=== PATIENT | female | born 1965 | race Caucasian/White ===

== ENCOUNTER → 2019-07-03 | Outpatient (CLI) | payer OTHER ==
[~2019-07-03] MED LIST: ACETAMINOPHEN; ACYC400 PO; ALBU.083IS IH; ALBU90OI; ALBU90OI6 INH; ALBU90OI61 INH; AMIT10; AMIT25; AMIT25 PO; AMIT50; AMIT50 PO; ATEN25; AZIT250 PO; AZIT500 PO; BENZ100A PO; CALC.25; CALC.25 PO; CHOL10002 PO; CITA10S; CITA20; CITA20 PO; CLON1; CLON1 PO; CLON2; CODGUAEL PO; CYCL10 PO; DIAZ5; DIAZ5 PO; DOXY100 PO; ERGO50000 PO; FLUSAL2505 IH; GABA100; GABA300; HYDACE5 PO; HYDMOR2 PO; HYDPAM25; HYDPAM25 PO; HYDR1TAB94; IBUP800 PO; KETO10 PO; LAVAZA PO; LEVFLO500 PO; LEVOXYL; LEVSOD100; LEVSOD125; LEVSOD125 PO; LEVSOD137 PO; LEVSOD175; LIOT25; LORA1; MECL25 PO; METO50 PO; MIRT15; MIRT15 PO; MIRT30; MIRT30 PO; NAPR500; NAPR500 PO; OLAN2.5; OLAN2.5 PO; OLAN5 PO; ONDA4 PO; OXYACE10 PO; OXYACE5T; OXYACE5T PO; OXYACE7.5T PO; OXYCODONE; OXYGEN USE; PERCOCET 10/325; PRAV20 PO; PRAV40 PO; PRED10 PO; PRED20 PO; PROM25 PO; Percocet PO; Pravachol PO; RANI150; RANI150 PO; RXCODGUASY PO; RXCYCL10 PO; RXHYDMOR2 PO; RXOXYACE PO; RXPROM25 PO; SILSUL1TC TOP; TIOT18 IH; [UNRECOGNIZED DRUG - OTHER]; [UNRECOGNIZED DRUG - REMARK]; [UNRECOGNIZED DRUG - REMARK]
== END ==
LOC: LAB SHORT 18:06 → LAB EV 18:06
DX: M54.16 Radiculopathy, lumbar region (principal); G89.4 Chronic pain syndrome
CPT/HCPCS: G0480

== ENCOUNTER 2019-09-12 12:17 | Inpatient (IN) | payer OTHER ==
[~2019-09-12] VITALS: Ht 157.5 cm; Wt 67.4 kg
[2019-09-12 13:04] LABS: BASOPHILS ABSOLUTE AUTO 0.03 K/mm3 (0.00-0.23); BASOPHILS PERCENT AUTO 0 % (0-2); EOSINOPHILS ABSOLUTE AUTO 0.21 K/mm3 (0.00-0.68); EOSINOPHILS PERCENT AUTO 2 % (0-6); Hemoglobin 12.5 g/dL (11.5-16.0); IMMATURE GRAN ABSOLUTE AUTO 0.03 K/mm3 (0.00-0.10); IMMATURE GRAN PERCENT AUTO 0 % (0-1); LYMPHOCYTES ABSOLUTE AUTO 1.81 K/mm3 (0.84-5.20); LYMPHOCYTES PERCENT AUTO 16 % (21-46); MONOCYTES ABSOLUTE AUTO 0.53 K/mm3 (0.16-1.47); MONOCYTES PERCENT AUTO 5 % (4-13); Mean Corpuscular HGB 28.2 pg (26.0-34.0); Mean Corpuscular HGB Conc 32.1 g/dL (31.5-36.5); Mean Corpuscular Volume 88 fL (80-100); Mean Platelet Volume 9.9 fL (9.1-12.4); NEUTROPHILS ABSOLUTE AUTO 8.84 K/mm3 (1.96-9.15); NEUTROPHILS PERCENT AUTO 77 % (41-73); Platelet Count 251 K/mm3 (150-400); RDW Coefficient Variation 12.4 % (11.7-14.2); RDW Standard Deviation 39.8 fL (35.1-46.3); Red Blood Cell Count 4.44 M/mm3 (3.80-5.20); White Blood Cell Count 11.45 K/mm3 (4.00-11.30)
[2019-09-12 13:23] LABS: Troponin I <0.015 ng/mL (0.000-0.040)
[2019-09-12 13:30] LABS: Alanine Aminotransfer (ALT/SGP 19 U/L (12-78); Albumin, Blood 3.6 g/dL (3.4-5.0); Albumin/Globulin Ratio 0.9 (0.8-1.8); Alk Phos 150 U/L (50-136); Anion Gap 9 mmol/L (6-16); Aspartate Aminotrans (AST/SGOT 15 U/L (12-37); Bilirubin, Total 0.4 mg/dL (0.1-1.0); Blood Urea Nitrogen 9 mg/dL (8-24); CO2, Blood 27 mmol/L (21-32); Calcium, Blood 5.5 mg/dL (8.5-10.1); Chloride, Blood 104 mmol/L (98-108); Globulin, Blood 3.8 g/dL (2.2-4.0); Glomerular Filtration Rate >60 (60-); Glucose, Blood 87 mg/dL (70-99); Potassium, Blood 3.2 mmol/L (3.5-5.5); Sodium, Blood 140 mmol/L (136-145); Total Protein, Blood 7.4 g/dL (6.4-8.2)
[2019-09-12] MEDS ORDERED: POTA10T PO (16:08)
[2019-09-12] MEDS ORDERED: ATOR40TA PO (16:09)
[2019-09-12] MEDS ORDERED: Citalopram HBr40 MG PO (16:09)
[2019-09-12] MEDS ORDERED: ALPR.5 PO (16:09)
[2019-09-12] MEDS ORDERED: SYMBICORT 160-4.6 GM INH (16:09)
[2019-09-12] MEDS ORDERED: PROAIR RESPICL90 MCG INH (16:10)
[2019-09-12] MEDS ORDERED: LEVSOD100 PO (16:10)
[2019-09-12] MEDS ORDERED: GABA300 PO (16:10)
[2019-09-12] MEDS ORDERED: AMIT50 PO (16:10)
[2019-09-12] MEDS ORDERED: OLAN5 PO (16:10)
[2019-09-12] MEDS ORDERED: MIRT15 PO (16:11)
--- NOTE | 2019-09-12 22:30 | NUR ---
PCU ADMIT PT BROUGHT TO PCU-06 FROM ER BY RODGER @ APPROX 211. PT A&O X4, ABLE TO STAND AND AMBULATE TO PCU BED W/ SBA. PT VSS. MONITOR SHOWS NSR, HR 70's. SPO2 > 92% ON 2L NC. PT REPORTS RA @ BASELINE. PT DAUGHTER WILL BE COMING IN TO SPEND NIGHT W/ PT PER MD & NURSING CUFF FOLDER APPROVAL. WILL CONTINUE TO MONITOR AND PROVIDE CARE UNTIL REPORT OFF TO DAY SHIFT RN.
[2019-09-13 03:28] LABS: BASOPHILS ABSOLUTE AUTO 0.03 K/mm3 (0.00-0.23); BASOPHILS PERCENT AUTO 0 % (0-2); EOSINOPHILS ABSOLUTE AUTO 0.43 K/mm3 (0.00-0.68); EOSINOPHILS PERCENT AUTO 5 % (0-6); Hematocrit 35.8 % (33.0-51.0); Hemoglobin 11.1 g/dL (11.5-16.0); IMMATURE GRAN ABSOLUTE AUTO 0.02 K/mm3 (0.00-0.10); IMMATURE GRAN PERCENT AUTO 0 % (0-1); LYMPHOCYTES PERCENT AUTO 31 % (21-46); MONOCYTES ABSOLUTE AUTO 0.46 K/mm3 (0.16-1.47); MONOCYTES PERCENT AUTO 5 % (4-13); Mean Corpuscular HGB 28.2 pg (26.0-34.0); Mean Corpuscular Volume 91 fL (80-100); Mean Platelet Volume 10.3 fL (9.1-12.4); NEUTROPHILS ABSOLUTE AUTO 5.16 K/mm3 (1.96-9.15); NEUTROPHILS PERCENT AUTO 59 % (41-73); Platelet Count 190 K/mm3 (150-400); RDW Coefficient Variation 12.4 % (11.7-14.2); RDW Standard Deviation 41.3 fL (35.1-46.3); Red Blood Cell Count 3.93 M/mm3 (3.80-5.20)
[2019-09-13 04:22] LABS: Alanine Aminotransfer (ALT/SGP 16 U/L (12-78); Albumin/Globulin Ratio 0.9 (0.8-1.8); Alk Phos 130 U/L (50-136); Anion Gap 7 mmol/L (6-16); Aspartate Aminotrans (AST/SGOT 16 U/L (12-37); Bilirubin, Total 0.3 mg/dL (0.1-1.0); Blood Urea Nitrogen 11 mg/dL (8-24); Bun/Creatinine Ratio 10.9 (12.0-20.0); CO2, Blood 28 mmol/L (21-32); Calcium, Blood 7.6 mg/dL (8.5-10.1); Chloride, Blood 105 mmol/L (98-108); Creatinine, Blood 1.01 mg/dL (0.40-1.00); Globulin, Blood 3.4 g/dL (2.2-4.0); Glomerular Filtration Rate >60 (60-); Glucose, Blood 104 mg/dL (70-99); Potassium, Blood 3.1 mmol/L (3.5-5.5); Sodium, Blood 140 mmol/L (136-145); Total Protein, Blood 6.4 g/dL (6.4-8.2)
--- NOTE | 2019-09-13 05:57 | NUR ---
SHIFT SUMMARY PT A&O X4. VSS. MONITOR SHOWS NSR, HR 80's-90's. SPO2 > 92% ON 2L NC, TITRATED TO RA WHICH IS PT's REPORTED BASELINE. CA GLUCONATE GTT INFUSING PER ORDERS. PT'S DAUGHTER AT BEDSIDE T/O NIGHT. NO EVENTS OVER NIGHT. WILL CONTINUE TO MONITOR AND PROVIDE CARE UNTIL REPORT OFF TO DAY SHIFT RN.
--- NOTE | 2019-09-13 08:00 | NUR ---
pt laying in bed sleeping, daughter in room with her, she wakes easily but is very tired, her daughter states she is not a morning person and was woke throughout the night, lungs are clear in upper perez, a bit dim in bases, resp even and unlabored, no cough noted, hrr, tele in place running sr per monitor, see strip, no edema noted, ppp+1, cap refill <3sec, vs sable, afbrile, iv site is clear and patent, btx4, abd flat soft nontender, voids without diff, skin c/w/d, maew, gait noted to be steady when got her to the bathroom, call light in reach.
--- NOTE | 2019-09-13 13:30 | NUR ---
pt ambulating in the sims with her daughter, gait noted to be steady, states she feels good, call light in reach.
--- NOTE | 2019-09-13 19:08 | NUR ---
pt resting in bed, has ambulated in sims several times today, daughter with her all day, no acute changes, calcium continues to infuse at 30mls/hr, will recheck tonight, and plan is for her to go home in the am. call light in reach.
--- NOTE | 2019-09-13 19:38 | NUR ---
ASSUMED CARE / CALL TO MD CALL TO MD FLORES TO REPORT SERUM CA 9.0. W/ INSTRUCTIONS TO CHANGE CA GLUCONATE GTT RATE TO 15 MLS/HR, REDRAW SERUM CA IN 4 HRS, & SHUT CA GTT OFF IF CA > 9. PT A&O X4. VSS. MONITOR SHOWS SR, HR 80's. SPO2 > 92% ON RA. PT FMAILY MEMBER AT BEDSIDE. WILL CONTINUE TO MONITOR & PROVIDE CARE.
--- NOTE | 2019-09-13 21:40 | NUR ---
UNCOLLECTED URINE PT REMINDED OF NEEDED URINE SAMPLE ORDERED 09/11. PT NOTED TO HAVE REMOVED CLEAN COLLECTION BOWEL FROM TOILET, STATING THAT SHE CAN'T PEE W/ THE BOWEL IN THE TOILET BECAUSE "I'VE HAD THE RUNS TODAY." PT ENCOURAGED TO URINATE IN COLLECTION DEVICE UPON NEXT VOID IF POSSIBLE.
[2019-09-14 04:11] LABS: BASOPHILS ABSOLUTE AUTO 0.03 K/mm3 (0.00-0.23); BASOPHILS PERCENT AUTO 0 % (0-2); EOSINOPHILS PERCENT AUTO 4 % (0-6); Hematocrit 37.2 % (33.0-51.0); Hemoglobin 11.7 g/dL (11.5-16.0); IMMATURE GRAN ABSOLUTE AUTO 0.02 K/mm3 (0.00-0.10); IMMATURE GRAN PERCENT AUTO 0 % (0-1); LYMPHOCYTES ABSOLUTE AUTO 2.52 K/mm3 (0.84-5.20); LYMPHOCYTES PERCENT AUTO 31 % (21-46); MONOCYTES ABSOLUTE AUTO 0.47 K/mm3 (0.16-1.47); MONOCYTES PERCENT AUTO 6 % (4-13); Mean Corpuscular HGB 27.7 pg (26.0-34.0); Mean Corpuscular HGB Conc 31.5 g/dL (31.5-36.5); Mean Corpuscular Volume 88 fL (80-100); Mean Platelet Volume 10.2 fL (9.1-12.4); NEUTROPHILS ABSOLUTE AUTO 4.82 K/mm3 (1.96-9.15); NEUTROPHILS PERCENT AUTO 59 % (41-73); Platelet Count 227 K/mm3 (150-400); RDW Coefficient Variation 12.3 % (11.7-14.2); RDW Standard Deviation 39.4 fL (35.1-46.3); Red Blood Cell Count 4.22 M/mm3 (3.80-5.20); White Blood Cell Count 8.16 K/mm3 (4.00-11.30)
[2019-09-14 04:29] LABS: Anion Gap 7 mmol/L (6-16); Blood Urea Nitrogen 9 mg/dL (8-24); Bun/Creatinine Ratio 10.5 (12.0-20.0); CO2, Blood 27 mmol/L (21-32); Calcium, Blood 8.5 mg/dL (8.5-10.1); Chloride, Blood 105 mmol/L (98-108); Creatinine, Blood 0.86 mg/dL (0.40-1.00); Glomerular Filtration Rate >60 (60-); Glucose, Blood 91 mg/dL (70-99); Potassium, Blood 3.1 mmol/L (3.5-5.5); Sodium, Blood 139 mmol/L (136-145)
--- NOTE | 2019-09-14 06:00 | NUR ---
SHIFT SUMMARY PT A&O X4. VSS. MONITOR SHOWS SR, HR 80's. SPO2 > 92% ON RA. CA GLUCONATE GTT DC'd THIS SHIFT. URINE SAMPLE REMAINS UNCOLLECTED D/T PT VOIDING IN TOILET RATHER THAN COLLECTION BOWEL DESPITE STAFF REQUEST. PT FAMILY MEMBER AT BEDSIDE T/O NIGHT. NO EVENTS OVER NIGHT. WILL CONTINUE TO MONITOR & PROVIDE CARE UNTIL REPORT OFF TO DAY SHIFT RN.
--- NOTE | 2019-09-14 08:00 | NUR ---
pt laying in bed awake a/ox3, pleasant and cooperative with care, follows commands well, complains of shoulder pain, too early for pain meds, daughter in room with her, lungs are a bit course, dim in bases, resp even and unlabored, no cough noted, hrr, tele in place running sr per monitor, see strip, no edema noted, ppp+2, cap refill <3sec, vs stable, afebrile, iv site is clear and patent, btx4, abd flat soft nontender, voids without diff, skin c/w/d, maew, brendan, call light in reach.
[2019-09-14] MEDS ORDERED: TUMS500 MG PO (09:07)
[2019-09-14] MEDS ORDERED: CALC.25 PO (09:07)
[2019-09-14] MEDS ORDERED: Vitamin D2000 UNIT PO (09:08)
[2019-09-14] MEDS ORDERED: TRAM50 PO (10:03)
--- NOTE | 2019-09-14 10:35 | NUR ---
Dr. Donovan in to see pt is dischaging her to home with new medications, went over instructions with her and her daughter, called in new medications to [facility], hard copy for tramadol was given to daughter, iv removed intact, left via wheelchair with recycling sorter in attendence.
[2019-09-21 16:11] LABS: ANTI-THYROGLOBULIN ANTIBODIES 131 IU/mL (.); THYROGLOBULIN (TG-RIA) 15 ng/mL (.)
== END 2019-09-14 10:02 | disposition home or self-care (01) | DRG 640 ==
LOC: ER 12:17 → PCU 20:16
PROVIDERS: Emergency Medicine; Family Medicine; Internal Medicine Endocrinology, Diabetes & Metabolism; ADMIT Family Medicine
DX: E83.51 Hypocalcemia (principal); J96.00 Acute respiratory failure, unspecified whether with hypoxia or hypercapnia; C78.00 Secondary malignant neoplasm of unspecified lung; G62.9 Polyneuropathy, unspecified; F17.210 Nicotine dependence, cigarettes, uncomplicated; Z90.09 Acquired absence of other part of head and neck; F43.10 Post-traumatic stress disorder, unspecified; F40.00 Agoraphobia, unspecified; C73 Malignant neoplasm of thyroid gland
CPT/HCPCS: 36415; 71260; 80048; 80053; 82306; 82310; 83735; 83880; 83970; 84432; 84484; 85025; 85379; 86800; 93005; 93010; 94640; 94760; 96365; 96366; 96372-59; 96376; 99285-25; A9270; A9270-GY; J0610; J1650; J7030; Q9967

== ENCOUNTER 2022-06-20 17:52 | Emergency (ER) | payer OTHER ==
[~2022-06-20] VITALS: Ht 157.5 cm; Wt 70.8 kg
[~2022-06-20 17:52] MED LIST changes: +ALPR.5 PO; +ATOR40TA PO; +Citalopram HBr40 MG PO; +GABA300 PO; +LEVSOD100 PO; +POTA10T PO; +PROAIR RESPICL90 MCG INH; +SYMBICORT 160-4.6 GM INH; +TRAM50 PO; +TUMS500 MG PO; +Vitamin D2000 UNIT PO
[2022-06-20] MEDS ORDERED: Ativan1 MG PO (18:18)
== END 2022-06-20 20:34 | disposition home or self-care (01) ==
LOC: ER 17:52
DX: R51.9 Headache, unspecified (principal); M54.2 Cervicalgia; V49.40XA Driver injured in collision with unspecified motor vehicles in traffic accident, initial encounter; J44.9 Chronic obstructive pulmonary disease, unspecified; Z87.891 Personal history of nicotine dependence; Z88.8 Allergy status to other drugs, medicaments and biological substances; Z88.1 Allergy status to other antibiotic agents
CPT/HCPCS: A9270; J1885

== ENCOUNTER → 2023-09-28 | Outpatient (CLI) | payer OTHER ==
[~2023-09-28] MED LIST changes: +Ativan1 MG PO
[2023-10-05 12:05] LABS: HPV HIGH RISK BY TMA Not Detected; HPV SOURCE Cervical
== END | disposition home or self-care (01) ==
LOC: LAB SHORT 17:39 → LAB 17:39
PROVIDERS: Family Medicine
DX: Z12.4 Encounter for screening for malignant neoplasm of cervix (principal)
CPT/HCPCS: 87624; G0123

== ENCOUNTER 2023-11-07 23:40 | Observation (INO) | payer OTHER ==
[~2023-11-07] VITALS: Ht 165.1 cm; Wt 65.0 kg
[2023-11-08 00:12] LABS: BASOPHILS ABSOLUTE AUTO 0.02 K/mm3 (0.00-0.23); BASOPHILS PERCENT AUTO 0 % (0-2); EOSINOPHILS ABSOLUTE AUTO 0.25 K/mm3 (0.00-0.68); EOSINOPHILS PERCENT AUTO 3 % (0-6); Hematocrit 36.4 % (33.0-51.0); Hemoglobin 11.9 g/dL (11.5-16.0); IMMATURE GRAN ABSOLUTE AUTO 0.01 K/mm3 (0.00-0.10); IMMATURE GRAN PERCENT AUTO 0 % (0-1); LYMPHOCYTES ABSOLUTE AUTO 2.87 K/mm3 (0.84-5.20); LYMPHOCYTES PERCENT AUTO 35 % (21-46); MONOCYTES ABSOLUTE AUTO 0.57 K/mm3 (0.16-1.47); MONOCYTES PERCENT AUTO 7 % (4-13); Mean Corpuscular HGB 29.9 pg (26.0-34.0); Mean Corpuscular HGB Conc 32.7 g/dL (31.5-36.5); Mean Corpuscular Volume 92 fL (80-100); NEUTROPHILS PERCENT AUTO 54 % (41-73); Platelet Count 252 K/mm3 (150-400); RDW Coefficient Variation 12.2 % (11.7-14.2); Red Blood Cell Count 3.98 M/mm3 (3.80-5.20); White Blood Cell Count 8.12 K/mm3 (4.00-11.30)
[2023-11-08 00:30] LABS: Albumin, Blood 3.9 g/dL (3.4-5.0); Albumin/Globulin Ratio 1.2 (0.8-1.8); Bilirubin, Total 0.3 mg/dL (0.1-1.0); Bun/Creatinine Ratio 16.8 (12.0-20.0); Calcium, Blood 8.3 mg/dL (8.5-10.1); Creatinine, Blood 1.07 mg/dL (0.40-1.00); Globulin, Blood 3.2 g/dL (2.2-4.0); Potassium, Blood 3.7 mmol/L (3.5-5.5); Total Protein, Blood 7.1 g/dL (6.4-8.2)
[2023-11-08] MEDS ORDERED: Ketorolac Tromethamine 30mg Vial IV ONE (00:50)
[2023-11-08] MEDS ORDERED: FentaNYL Citrate 50 MCG/ML 2 ML Injection IV ONE (01:35)
[2023-11-08] MEDS ORDERED: Aspirin 81 MG Chew PO ONE (01:45)
[2023-11-08] MEDS ORDERED: FentaNYL Citrate 50 MCG/ML 2 ML Injection IV PRN (03:00)
[2023-11-08 04:16] VITALS: BP 119/58
[2023-11-08] MEDS ORDERED: OLAN5A MM (04:26)
[2023-11-08] MEDS ORDERED: Percocet 10-321 EACH PO (04:28)
[2023-11-08] MEDS ORDERED: METPHE27ER PO (04:28)
--- NOTE | 2023-11-08 06:23 | NUR ---
ADMISSION/SHIFT SUMMARY REPORT RECEIVED FROM ER NURSE. PATIENT ARRIVES TO PCU 17 WITH DAUGHTER. PATIENT ABLE TO STAND AND AMBULATE FROM ER WHEELCHAIR AND TRANSFER SELF INTO PCU BED. PATIENT ALERT, ORIENTED x4, ABLE TO ANSWER ALL QUESTIONS APPROPRIATELY. PATIENT REPORTING CHEST PAIN AT TIME OF ADMISSION BUT ABLE TO FALL ASLEEP WHEN STAFF ARE NOT IN ROOM. BP STABLE. ON RA WITH SPO2 >90%. PATIENT AWAITING STRESS TEST AND CARDIOLOGY CONSULT THIS MORNING. OTHERWISE NO CHANGES, WILL REPORT TO DAY SHIFT RN.
[2023-11-08 08:17] VITALS: BP 145/69
[2023-11-08] MEDS ORDERED: Aspirin 81 MG Chew PO SCH (09:00)
[2023-11-08] MEDS ORDERED: Enoxaparin 40 MG/0.4 ML SYR SC SCH (09:00)
[2023-11-08] MEDS ORDERED: Nitroglycerin Patch 0.1MG / HR TOP SCH (09:00)
[2023-11-08] MEDS ORDERED: LEVSOD112 PO (09:29)
[2023-11-08] MEDS ORDERED: CELEXA40 M1 PO (09:30)
[2023-11-08] MEDS ORDERED: POTA10T PO (09:31)
[2023-11-08] MEDS ORDERED: Triamcinolone A15 G3 TOP (09:31)
[2023-11-08] MEDS ORDERED: TIOT18 INH (09:33)
[2023-11-08] MEDS ORDERED: Budeprion Xl300 MG PO (09:33)
[2023-11-08] MEDS ORDERED: THERA-D2000 UNIT PO (09:35)
[2023-11-08] MEDS ORDERED: LIDO700A20 TOP (09:37)
[2023-11-08] MEDS ORDERED: CYCL10 PO (09:38)
[2023-11-08] MEDS ORDERED: SUMA25 PO (09:39)
[2023-11-08] MEDS ORDERED: TUMS500 MG PO (09:42)
--- NOTE | 2023-11-08 09:55 | NUR ---
Dr. Valdez was here to see the patient. Home med rec completed based on the pharmacy outpatient claim history. Pt has right upper chest sharp pain, requesting fentanyl for relief, rated 7/10. Pain per patient improved to 5/10 when she lies on the affected side. Pain med given per eMAR. Pt to go down for imaging for stress test at 1000.
[2023-11-08] MEDS ORDERED: Cyclobenzaprine HCl 10 MG Tab PO PRN (11:00)
[2023-11-08] MEDS ORDERED: OxyCODONE 10/Acetamin 325 TABLET PO PRN (11:00)
[2023-11-08] MEDS ORDERED: Calcium Carbonate 500 MG Tab Chew PO PRN (11:00)
[2023-11-08] MEDS ORDERED: LORazepam 1 MG Tab PO PRN (11:05)
[2023-11-08] MEDS ORDERED: Mometasone/Formoterol MDI 200/5 mcg 13 GM INH SCH (11:10)
[2023-11-08] MEDS ORDERED: Albuterol HFA200 ACT/6.7 GM INH INH PRN (11:10)
[2023-11-08] MEDS ORDERED: Tiotropium Bromide 2.5 MCG/ACT MIST INHAL (10 ACT/4 GM) INH SCH (11:15)
--- NOTE | 2023-11-08 12:27 | NUR ---
Pt is still having right chest pain, unchanged from before. Minimal, brief relief with IV fentanyl.
[2023-11-08 12:29] VITALS: BP 111/92
[2023-11-08] MEDS ORDERED: Triamcinolone Acet 0.1% Ointment 15 GM TOP SCH (13:00)
--- NOTE | 2023-11-08 13:38 | NUR ---
Pt requested a shower, and she tolerated the activity very well. She is lying in bed, surrounded by 10 family members. She is holding an granddaughter and talking with them. States that her pain is 7/10; that it has not gone away since she got in here.
[2023-11-08] MEDS ORDERED: Lidocaine 4% 1 Patch TOP SCH (14:35)
--- NOTE | 2023-11-08 15:01 | NUR ---
pt is lying in bed, on her right side, room darkened. Given Ativan and lidocaine patch at this time for relief of her symptoms.
--- NOTE | 2023-11-08 15:11 | NUR ---
Telephone report to Hernandez Hansen RN. Pt will be transferring to medical floor room 355. Second portion of the stress test will not be done today; [facility] called to say that the heart center had an emergency case.
[2023-11-08] MEDS ORDERED: Citalopram Hydrobromide 20 MG Tab PO ONE (16:40)
[2023-11-08] MEDS ORDERED: Levothyroxine Sodium 0.112 MG Tab PO ONE (16:40)
--- NOTE | 2023-11-08 18:29 | NUR ---
TRANSFER NOTE/SHIFT SUMMARY PATIENT A/OX4, ABLE TO MAKE NEEDS KNOWN. PATIENT ANXIOUS, BUT COOPERATIVE AND PLEASANT WITH CARE. COMPLAINING OF PAIN TO RIGHT SIDE CHEST UPON ARRIVAL TO THE UNIT, MEDICATED PER MAY. PATIENT REQUESTING DAILY HOME MEDICATIONS. DR. HOUSTON VERBALIZED ONE TIME ORDERS OF SYNTHROUD AND CITALOPRAM PER PATIENT'S REQUEST. TELEMETY IN PLACE. PLAN TO HAVE STRESS TEST TOMORROW AM, NO CAFFIENNE OR CARDIAC INTERFERING DRUGS PRIOR TO STRESS TEST. NO OTHER CONCERNS THIS SHIFT. FAMILY AT BEDSIDE, NO OTHER CONCERNS AT THIS TIME, PATIENT RESTING COMFORTABLY IN BED.
[2023-11-08 19:41] VITALS: BP 109/53
[2023-11-08] MEDS ORDERED: Atorvastatin 40 MG Tab PO SCH (21:00)
[2023-11-08] MEDS ORDERED: OLANZapine ODT 5 MG Tab MM SCH (21:00)
--- NOTE | 2023-11-09 02:30 | NUR ---
PT REPORTED AT HS THAT HER BASELINE IS 2L O2 VIA NASAL CANNULA. PT WEARS CPAP AT NIGHT WELL.
--- NOTE | 2023-11-09 04:08 | NUR ---
SHIFT SUMMARY PT IS A&O X4, ABLE TO MAKE HER NEEDS KNOWN. AT HS PT'S , GRANDCHILDREN AND DAUGHTER BY THE BEDSIDE. PT'S DAUGHTER SPENDING THE NIGHT IN THE HOSPITAL ROOM. DAUGHTER ADVOCATING R/T ORDERED MEDICATIONS AND PAIN CONTROL, WELL REQUESTING INFO ABOUT AM TESTS. PT EDUCATION PROVIDED T/O THIS SHIFT. AT HS, PT C/O HERNANDEZ AND PAIN ON THE RIGHT SIDE 09/19. PT REQUESTED FETANYL IV, AND FLEXERIL PO PRN. ADMINISTERED ORDERED WITH GOOD EFFECTIVNESS -07/20. PT APPEARS RELAXED AFTER ANALGESIC AND HAVE BEEN RESTING T/O THE NIGHT, NO ACUTE DISTRESS NOTED/REPORTED. TELE:NORMAL SR @70. PT REPORTED TO THIS [employer]IXER, HAS O2 2L VIA NASAL CANNULA AT HOME, AND WEARS A CPAP DURING NIGHT. RT CONSULTED, PT REFUSED HOSPITAL CPAP AT THIS TIME. 02 @ 2L, SAT'S> 97%. PT DENIES SOB. NO ACUTE EVENTS DURING THIS SHIFT. BED AT THE LOWEST POSITION, CALL LIGHT WITHIN REACH.
[2023-11-09 04:54] VITALS: BP 124/50
[2023-11-09] MEDS ORDERED: Levothyroxine Sodium 0.112 MG Tab PO SCH (06:00)
[2023-11-09] MEDS ORDERED: Aminophylline 250MG / 10ML 10 ML Vial ONE (07:08)
[2023-11-09] MEDS ORDERED: Regadenoson 0.4 MG/5 ML SYRINGE ONE (07:08)
[2023-11-09] MEDS ORDERED: buPROPion HCL 150 MG TAB.SR.12H PO SCH (09:00)
[2023-11-09] MEDS ORDERED: Citalopram Hydrobromide 20 MG Tab PO SCH (09:00)
[2023-11-09] MEDS ORDERED: Cholecalciferol 1000 Unit Tablet (=25MCG) PO SCH (09:00)
[2023-11-09] MEDS ORDERED: Lidocaine 4% 1 Patch TOP SCH ×2 (09:00→10:13)
[2023-11-09] MEDS ORDERED: Potassium Chloride 10 Meq Tablet SA PO SCH (09:00)
[2023-11-09] MEDS ORDERED: Vitamin D1000 UNI1 PO (12:37)
--- NOTE | 2023-11-09 13:18 | NUR ---
DISCHARGE NOTE PATIENT A/OX4 ABLE TO MAKE NEEDS KNOWN. DAUGHTER AT BEDSIDE ALL OF SHIFT. PATIENT AND FAMILY PLEASANT AND COOPERATIVE WITH CARE. PATIENT CONTINUES TO COMPLAIN OF R SIDED CHEST/RIB PAIN THAT IS RELIEVED WITH BY PRESSURE. COBAN WRAPPED AROUND CHEST PER PATIENT'S REQUEST. LIDOCAINE PATCHES APPLIED, MEDICATED PAIN OITMENT, FENTANYL AND PERCOCET ADMINISTERED PER MAY. PATIENT WITH STRESS TEST THIS AM NEGATIVE FOR CAUSATIVE FACTORS FOR PAIN. DISCHARGE ORDERS RECIEVED AND PATIENT PROVIDED WITH EDUCATION REGARDING OUTPATIENT FOLLOW UP WITHIN 72 HOURS. PATIENT AND DAUGHTER WITH NO QUESTIONS AT TIME OF DISCHARGE, PIV AND TELEMTRY REMOVED, AND PATIENT ASSISTED TO FAMILY VEHICLE VIA WHEELCHAIR BY [facility] STAFF. NO OTHER CONCERNS.
== END 2023-11-09 13:19 | disposition home or self-care (01) ==
LOC: ER 23:40 → PCU 23:41 → MEDS 11-08 15:45 → ENPENDDIS 11-09 11:55 → MEDS 11-09 13:19
PROVIDERS: Emergency Medicine; ADMIT Internal Medicine
DX: R07.89 Other chest pain (principal); J44.9 Chronic obstructive pulmonary disease, unspecified; E89.0 Postprocedural hypothyroidism; Z87.891 Personal history of nicotine dependence; Z88.8 Allergy status to other drugs, medicaments and biological substances; Z88.1 Allergy status to other antibiotic agents; Z79.890 Hormone replacement therapy; Z79.899 Other long term (current) drug therapy; Z85.850 Personal history of malignant neoplasm of thyroid; Z86.59 Personal history of other mental and behavioral disorders
CPT/HCPCS: 36415; 71046; 78452; 80053; 84484; 85025; 85379; 93005; 93010; 93017; 94640; 94664; 94760; 96372; 96374; 96375; 96376; 99285-25; A9270; A9500; G0378; J0280; J1650; J1885; J2785; J3010

== ENCOUNTER 2024-06-24 20:02 | Emergency (ER) | payer OTHER ==
[~2024-06-24] VITALS: Ht 157.5 cm; Wt 64.9 kg
[~2024-06-24 20:02] MED LIST changes: +Budeprion Xl300 MG PO; +CELEXA40 M1 PO; +LEVSOD112 PO; +LIDO700A20 TOP; +METPHE27ER PO; +OLAN5A MM; +Percocet 10-321 EACH PO; +SUMA25 PO; +THERA-D2000 UNIT PO; +TIOT18 INH; +Triamcinolone A15 G3 TOP; +Vitamin D1000 UNI1 PO
[2024-06-24 21:00] VITALS: BP 140/94
[2024-06-24] MEDS ORDERED: Dexamethasone Sod Phos 10 MG/ML 1ML VIAL IV ONE (21:05)
[2024-06-24] MEDS ORDERED: Prochlorperazine Edisylate 10 mg Vial IV ONE (21:05)
[2024-06-24] MEDS ORDERED: Ketorolac Tromethamine 15mg Vial IV ONE (21:05)
[2024-06-24] MEDS ORDERED: DiphenhydrAMINE HCl 50 MG/ML 1ML Vial IV ONE (21:05)
[2024-06-24 21:42] LABS: BASOPHILS ABSOLUTE AUTO 0.03 K/mm3 (0.00-0.23); BASOPHILS PERCENT AUTO 0 % (0-2); EOSINOPHILS ABSOLUTE AUTO 0.25 K/mm3 (0.00-0.68); EOSINOPHILS PERCENT AUTO 4 % (0-6); Hematocrit 36.6 % (33.0-51.0); Hemoglobin 12.1 g/dL (11.5-16.0); IMMATURE GRAN ABSOLUTE AUTO 0.01 K/mm3 (0.00-0.10); IMMATURE GRAN PERCENT AUTO 0 % (0-1); LYMPHOCYTES ABSOLUTE AUTO 2.68 K/mm3 (0.84-5.20); LYMPHOCYTES PERCENT AUTO 38 % (21-46); MONOCYTES ABSOLUTE AUTO 0.67 K/mm3 (0.16-1.47); MONOCYTES PERCENT AUTO 10 % (4-13); Mean Corpuscular HGB 29.5 pg (26.0-34.0); Mean Corpuscular HGB Conc 33.1 g/dL (31.5-36.5); Mean Corpuscular Volume 89 fL (80-100); Mean Platelet Volume 9.9 fL (9.1-12.4); NEUTROPHILS ABSOLUTE AUTO 3.41 K/mm3 (1.96-9.15); NEUTROPHILS PERCENT AUTO 49 % (41-73); Platelet Count 254 K/mm3 (150-400); RDW Coefficient Variation 12.8 % (11.7-14.2); RDW Standard Deviation 42.2 fL (35.1-46.3); White Blood Cell Count 7.05 K/mm3 (4.00-11.30)
[2024-06-24 22:11] LABS: Albumin, Blood 3.9 g/dL (3.4-5.0); Albumin/Globulin Ratio 1.3 (0.8-1.8); Bilirubin, Total 0.2 mg/dL (0.1-1.0); Bun/Creatinine Ratio 18.2 (12.0-20.0); Calcium, Blood 8.8 mg/dL (8.5-10.1); Creatinine, Blood 0.93 mg/dL (0.40-1.00); Globulin, Blood 3.1 g/dL (2.2-4.0); Potassium, Blood 3.3 mmol/L (3.5-5.5)
== END 2024-06-24 22:12 | disposition home or self-care (01) ==
LOC: ER 20:02
PROVIDERS: Student in an Organized Health Care Education/Training Program
DX: G43.909 Migraine, unspecified, not intractable, without status migrainosus (principal); J44.9 Chronic obstructive pulmonary disease, unspecified; Z87.891 Personal history of nicotine dependence; Z88.1 Allergy status to other antibiotic agents; Z88.8 Allergy status to other drugs, medicaments and biological substances; Z79.51 Long term (current) use of inhaled steroids; Z79.890 Hormone replacement therapy; Z79.899 Other long term (current) drug therapy
CPT/HCPCS: 80053; 85025; 96374; 96375; 99283-25; J0780; J1100; J1200; J1885

== ENCOUNTER 2024-07-04 20:07 | Emergency (ER) | payer OTHER ==
[~2024-07-04] VITALS: Ht 157.5 cm; Wt 64.4 kg
[2024-07-04] MEDS ORDERED: Prochlorperazine Edisylate 10 mg Vial IV ONE (22:40)
[2024-07-04] MEDS ORDERED: Acetaminophen 500 MG Tab PO ONE (22:40)
[2024-07-04] MEDS ORDERED: DiphenhydrAMINE HCl 50 MG/ML 1ML Vial IV ONE (22:40)
[2024-07-04] MEDS ORDERED: Ketorolac Tromethamine 15mg Vial IV ONE (22:40)
[2024-07-04 23:25] VITALS: BP 120/67
== END 2024-07-04 23:26 | disposition home or self-care (01) ==
LOC: ER 20:07
DX: G43.909 Migraine, unspecified, not intractable, without status migrainosus (principal); J44.9 Chronic obstructive pulmonary disease, unspecified; Z87.891 Personal history of nicotine dependence; Z79.899 Other long term (current) drug therapy; Z79.51 Long term (current) use of inhaled steroids; Z88.1 Allergy status to other antibiotic agents; Z88.8 Allergy status to other drugs, medicaments and biological substances
CPT/HCPCS: 96374; 96375; 99283-25; A9270; J0780; J1200; J1885

== ENCOUNTER 2024-12-07 17:13 | Emergency (ER) | payer OTHER ==
[~2024-12-07] VITALS: Ht 157.5 cm; Wt 64.4 kg
[2024-12-07 18:16] LABS: BASOPHILS ABSOLUTE AUTO 0.04 K/mm3 (0.00-0.23); BASOPHILS PERCENT AUTO 1 % (0-2); EOSINOPHILS ABSOLUTE AUTO 0.30 K/mm3 (0.00-0.68); EOSINOPHILS PERCENT AUTO 4 % (0-6); Hematocrit 37.6 % (33.0-51.0); Hemoglobin 13.0 g/dL (11.5-16.0); IMMATURE GRAN ABSOLUTE AUTO 0.02 K/mm3 (0.00-0.10); IMMATURE GRAN PERCENT AUTO 0 % (0-1); LYMPHOCYTES ABSOLUTE AUTO 2.65 K/mm3 (0.84-5.20); LYMPHOCYTES PERCENT AUTO 31 % (21-46); MONOCYTES ABSOLUTE AUTO 0.53 K/mm3 (0.16-1.47); MONOCYTES PERCENT AUTO 6 % (4-13); Mean Corpuscular HGB Conc 34.6 g/dL (31.5-36.5); Mean Corpuscular Volume 89 fL (80-100); NEUTROPHILS ABSOLUTE AUTO 4.96 K/mm3 (1.96-9.15); NEUTROPHILS PERCENT AUTO 58 % (41-73); NRBC ABSOLUTE 0.00 K/mm3 (0.00-0.02); NRBC Auto 0.0 /100 WBC (0.0-0.2); Platelet Count 299 K/mm3 (150-400); RDW Coefficient Variation 12.3 % (11.7-14.2); RDW Standard Deviation 39.9 fL (35.1-46.3)
[2024-12-07 18:38] LABS: Alanine Aminotransfer (ALT/SGP 33.0 U/L (12-78); Albumin, Blood 4.2 g/dL (3.4-5.0); Albumin/Globulin Ratio 1.1 (0.8-1.8); Anion Gap 7.0 mmol/L (3-11); Aspartate Aminotrans (AST/SGOT 37.0 U/L (12-37); Bilirubin, Total 0.4 mg/dL (0.1-1.0); Blood Urea Nitrogen 16.0 mg/dL (8-24); CO2, Blood 25.0 mmol/L (21-32); Calcium, Blood 8.8 mg/dL (8.5-10.1); Chloride, Blood 109.0 mmol/L (98-108); Creatinine, Blood 1.05 mg/dL (0.40-1.00); Globulin, Blood 3.7 g/dL (2.2-4.0); Glucose, Blood 70.0 mg/dL (70-99); Potassium, Blood 4.2 mmol/L (3.5-5.5); Sodium, Blood 137.0 mmol/L (136-145); Total Protein, Blood 7.9 g/dL (6.4-8.2)
[2024-12-07] MEDS ORDERED: Ketorolac Tromethamine 15mg Vial IV ONE (19:40)
[2024-12-07] MEDS ORDERED: HYDROmorphone HCl/Pf 1MG SYR IV ONE (19:55)
[2024-12-07] MEDS ORDERED: HYDROcodone 10-APAP 325 TAB PO ONE (20:55)
[2024-12-07 22:23] VITALS: BP 137/77
== END 2024-12-07 23:30 | disposition left against medical advice (07) ==
LOC: ER 17:13
PROVIDERS: Student in an Organized Health Care Education/Training Program
DX: R10.84 Generalized abdominal pain (principal); Z53.29 Procedure and treatment not carried out because of patient's decision for other reasons; M79.7 Fibromyalgia; F41.9 Anxiety disorder, unspecified; Z87.891 Personal history of nicotine dependence; Z87.442 Personal history of urinary calculi; Z88.8 Allergy status to other drugs, medicaments and biological substances; Z79.899 Other long term (current) drug therapy
CPT/HCPCS: 74177; 80053; 85025; 96374-59; 96375; 99284-25; A9270; J1171; J1885; Q9967